=== PATIENT | female | born 1965 ===

== ENCOUNTER 2017-09-20 13:16 | Emergency (ER) | payer SELFPAY ==
--- NOTE | 2017-09-20 14:50 | RAD ---
CHEST 1 VIEW: Date: 09/20/17 HISTORY: Emergency exam. Shortness of breath and chest pain. COMPARISON: None. FINDINGS: Lungs are clear. No pneumothorax or effusion. Projecting over the right upper lung are two peripheral 2.0 x 11.0 mm ovoid hyperdensities. Radiopacity projects over the neck. IMPRESSION: 1. No acute intrathoracic abnormality. 2. Two separate 2.0 x 11.0 mm ovoid radiopacities projecting over the right upper lobe may be outsid e of patient. If no comparison is available for review, follow-up could be obtained. POS: [facility]
== END 2017-09-20 15:36 | disposition home or self-care (01) ==
LOC: ERS 13:16
DX: J40 Bronchitis, not specified as acute or chronic (principal); J98.01 Acute bronchospasm; F25.9 Schizoaffective disorder, unspecified; Z87.891 Personal history of nicotine dependence
CPT/HCPCS: 71045; 87804